=== PATIENT | female | born 1970 ===

== ENCOUNTER → 2017-04-27 | Outpatient (CLI) | payer OTHER ==
[~2017-04-27] MED LIST: CONTRAST GIVEN MC PRN; IOHEXOL 300 MG/ML 75 ML VIAL IV ONE
--- NOTE | 2017-04-27 21:41 | RAD ---
CT ABD PELV W/ IV CONTRST ONLY dated 04/27/2017 12:00 AM Indication: Severe right upper quadrant pain, right lower quadrant pain, symptoms worsening since Tuesday. Abdominal pain Comparison: No comparison is available. Technique: Contiguous axial imaging of the abdomen and pelvis performed after the intravenous administration of 75 cc Omnipaque 300. One or more of the following individualized dose reduction techniques were utilized for this examination: 1. Automated exposure control 2. Adjustment of the mA and/or kV according to patient size 3. Use of iterative reconstruction technique Findings: Limited images of lung bases are clear. There is a 3 mm noncalcified subpleural nodule in the right lower lobe, image 6. 3 mm noncalcified subpleural nodule in the left lower lobe on image 12 heart size within normal limits. No pleural or pericardial effusion. Liver and spleen are homogeneous. No biliary ductal dilatation. Gallbladder unremarkable. Pancreas, adrenal glands and kidneys unremarkable. No hydronephrosis. Unopacified GI tract normal in caliber and contour. No focal bowel wall thickening. There are inflammatory changes associated with a fatty density at the right mid abdomen (image 49). This may be associated with the hepatic flexure. The appendix is normal in caliber. No ascites or lymphadenopathy. Abdominal aorta normal in caliber. Small umbilical hernia containing only fat. Images of the pelvis a nondistended urinary bladder. Uterus and adnexa are unremarkable. No free fluid or lymphadenopathy. Bone windows show no acute findings. Mild multilevel spondylosis. IMPRESSION: 1. Fatty density at the right mid abdomen with surrounding inflammatory changes, nonspecific but most consistent with epiploic appendagitis. 2. Otherwise no acute findings. Normal appendix. 3. Small noncalcified pulmonary nodules in the bilateral lower lobes, nonspecific. Electronically signed by: Robin Dickey MD (04/27/2017 9:37 PM)
== END | disposition home or self-care (01) ==
LOC: CT 21:02
PROVIDERS: ATTEND Family Medicine
DX: K42.9 Umbilical hernia without obstruction or gangrene (principal); R91.8 Other nonspecific abnormal finding of lung field; M47.9 Spondylosis, unspecified
CPT/HCPCS: 74177